=== PATIENT | female | born 1960 | race African-American/Black ===

== ENCOUNTER → 2017-02-04 | Outpatient (CLI) | payer OTHER ==
[2015-09-20 18:46] VITALS: BP 149/100
[~2017-02-04] MED LIST: IOHEXOL 240 MG/ML 50ML VIAL. ONE; IOHEXOL 300 MG/ML 75 ML VIAL. IV ONE; METR500T8 PO; PANT40TA5 PO; VALS1TAB33 PO
--- NOTE | 2017-02-04 15:52 | RAD ---
CT of the abdomen and pelvis with contrast, 02/04/2017: History: Right lower quadrant pain Multidetector CT imaging was performed following oral and IV administration of contrast. Comparison is made to a study from 09/20/2015. The liver is unremarkable. No dense gallstones are seen. The pancreas is unremarkable. The spleen is of normal size. No renal or adrenal abnormality is detected. The abdominal aorta is unremarkable. No abdominal or pelvic adenopathy is seen. Reportedly the uterus is surgically absent. There is unchanged soft tissue thickening in the region of the vaginal cuff probably due to scarring. There are multiple pelvic phleboliths. Phleboliths are also evident in the gonadal veins bilaterally. The bowel loops are not dilated. The appendix is not clearly visualized. No dilated appendix or pericecal inflammation is evident. Several small radiopacities along the base of the cecum are probably adjacent phleboliths or could represent dense material within the appendix. The small bowel loops are unremarkable. No free air or significant free fluid is evident in the abdomen or pelvis. IMPRESSION: No acute abdominal or pelvic abnormality is detected. PQRS Compliance Statement: One or more of the following individualized dose reduction techniques were utilized for this examination: 1. Automated exposure control 2. Adjustment of the mA and/or kV according to patient size 3. Use of iterative reconstruction technique
== END | disposition home or self-care (01) ==
LOC: CT 12:36
PROVIDERS: ATTEND Nurse Practitioner Adult Health
DX: I87.8 Other specified disorders of veins (principal); B37.9 Candidiasis, unspecified; N77.1 Vaginitis, vulvitis and vulvovaginitis in diseases classified elsewhere; R35.0 Frequency of micturition; I10 Essential (primary) hypertension; Z90.710 Acquired absence of both cervix and uterus
CPT/HCPCS: 74177; Q9966; Q9967

== ENCOUNTER → 2017-05-10 | Outpatient (CLI) | payer OTHER ==
[2015-09-20 18:46] VITALS: BP 149/100
[~2017-05-10] MED LIST changes: -IOHEXOL 240 MG/ML 50ML VIAL. ONE; -IOHEXOL 300 MG/ML 75 ML VIAL. IV ONE
--- NOTE | 2017-05-10 12:32 | RAD ---
CT HEAD INDICATION: four days ago hit table left frontal COMPARISON: None Available. TECHNIQUE: 5 mm contiguous axial images were obtained from the skull base to the vertex. Exposure: One or more of the following individualized dose reduction techniques were utilized for this examination: 1. Automated exposure control 2. Adjustment of the mA and/or kV according to patient size 3. Use of iterative reconstruction technique FINDINGS: No abnormal attenuation within the brain parenchyma. No evidence of acute intracranial hemorrhage. No extra-axial fluid collections. No mass effect or midline shift. Ventricular size is appropriate. Basal cisterns are patent. No fractures identified.Morrow-white differentiation is preserved.Globes and orbits are within normal limits. Paranasal sinuses and mastoid air cells are clear. IMPRESSION: No acute intracranial findings. Electronically signed by: Cain Banrey MD (05/10/2017 12:28 PM) [id number]
== END | disposition home or self-care (01) ==
LOC: CT 09:15
PROVIDERS: ATTEND Nurse Practitioner Adult Health
DX: S06.0X0A Concussion without loss of consciousness, initial encounter (principal); W22.8XXA Striking against or struck by other objects, initial encounter; Y93.89 Activity, other specified; Y92.89 Other specified places as the place of occurrence of the external cause; Y99.8 Other external cause status
CPT/HCPCS: 70450

== ENCOUNTER → 2017-09-29 | Outpatient (CLI) | payer OTHER ==
[2015-09-20 18:46] VITALS: BP 149/100
[~2017-09-29] MED LIST changes: +IOHEXOL 240 MG/ML 50ML VIAL. ONE
[2017-09-29] MEDS: IOHEXOL 300 MG/ML 75 ML VIAL. IV ONE (12:35)
--- NOTE | 2017-09-29 13:24 | RAD ---
CT Abdomen and Pelvis With Intravenous Contrast: History: Intermittent right lower quadrant pain for one year. Comparison: CT abdomen pelvis February 04, 2017. Technique: After administration of oral and intravenous contrast, 75 mL Omnipaque-300, CT of the abdomen and pelvis was performed. Exposure: One or more of the following individualized dose reduction techniques were utilized for this examination: 1. Automated exposure control 2. Adjustment of the mA and/or kV according to patient size 3. Use of iterative reconstruction technique Findings: Liver, spleen, pancreas, gallbladder, and bilateral adrenal glands are unremarkable. Bilateral kidneys enhance symmetrically. No bowel obstruction or inflammation is identified. Appendix is without evidence of inflammation. Urinary bladder is unremarkable. Uterus is absent. No free air free fluid is in the abdomen or pelvis. No abdominal or pelvic lymphadenopathy is seen. Impression: 1. No acute abnormality identified in the abdomen or pelvis. Electronically signed by: Robby Darby MD (09/29/2017 1:21 PM) [facility] [id number]
== END | disposition home or self-care (01) ==
LOC: CT 11:30
PROVIDERS: ATTEND Nurse Practitioner Adult Health
DX: R10.31 Right lower quadrant pain (principal); I10 Essential (primary) hypertension
CPT/HCPCS: 74177; Q9966; Q9967

== ENCOUNTER → 2018-03-01 | Day surgery (SDC) | payer OTHER ==
[~2018-03-01] MED LIST changes: +ALBUTEROL SULFATE 2.5 MG/3 ML NEBU. NEB PRN; +ATROPINE 0.5 MG/5 ML DISP.SYRIN. IV PRN; -IOHEXOL 240 MG/ML 50ML VIAL. ONE; +IV RINGERS SOLUTION,LACTATED 1,000 ML IV SCH; +LIDOCAINE 2% PF Vial for OR 5 ML VIAL. ONE; +LISI2.5T PO; +METR-84 PO; -METR500T8 PO; +NALOXONE 0.4 MG/ML VIAL. IV PRN; +ONDANSETRON PF 4 MG/2 ML VIAL. IV PRN; +PROPOFOL 20 ML IV ONE
[2018-03-01 13:31] VITALS: BP 137/84
== END | disposition home or self-care (01) ==
LOC: SURG 11:55
PROVIDERS: ATTEND Internal Medicine Gastroenterology
DX: K57.30 Diverticulosis of large intestine without perforation or abscess without bleeding (principal); I10 Essential (primary) hypertension; Z79.899 Other long term (current) drug therapy; Z90.710 Acquired absence of both cervix and uterus; Z98.890 Other specified postprocedural states; Z82.49 Family history of ischemic heart disease and other diseases of the circulatory system
CPT/HCPCS: 45378; J2704; J7120; J2001

== ENCOUNTER → 2019-12-12 | Outpatient (CLI) | payer OTHER ==
[2018-03-01 13:31] VITALS: BP 137/84
[~2019-12-12] MED LIST changes: -ALBUTEROL SULFATE 2.5 MG/3 ML NEBU. NEB PRN; -ATROPINE 0.5 MG/5 ML DISP.SYRIN. IV PRN; -IV RINGERS SOLUTION,LACTATED 1,000 ML IV SCH; -LIDOCAINE 2% PF Vial for OR 5 ML VIAL. ONE; +METR-34 PO; -METR-84 PO; -NALOXONE 0.4 MG/ML VIAL. IV PRN; -ONDANSETRON PF 4 MG/2 ML VIAL. IV PRN; -PANT40TA5 PO; +PANT40TA6 PO; -PROPOFOL 20 ML IV ONE
--- NOTE | 2019-12-12 10:46 | RAD ---
PQRS Compliance Statement: One or more of the following individualized dose reduction techniques were utilized for this examination: 1. Automated exposure control 2. Adjustment of the mA and/or kV according to patient size 3. Use of iterative reconstruction technique CT abdomen/pelvis without contrast 12/12/2019 12:00 AM INDICATION: Right lower quadrant abdominal pain COMPARISON: CT abdomen/pelvis 09/29/2017 TECHNIQUE: Multiple axial CT images of the abdomen and pelvis were obtained without intravenous contrast. Coronal and sagittal reformats are provided. FINDINGS: Lung bases are clear. Heart size within normal limits. Evaluation of solid abdominal viscera is limited by lack of intravenous contrast. Liver, spleen, bilateral adrenal glands, pancreas and gallbladder are normal in appearance. Abdominal aorta is normal in course and caliber. No pathologically enlarged lymph nodes are identified in abdomen and pelvis. There is no free fluid or free intraperitoneal air. Small and large bowel are normal in caliber. No bowel obstruction or inflammation. Small amount of stool is noted throughout the colon. Appendix is not dilated without adjacent inflammatory changes. Kidneys are symmetric in appearance. No hydronephrosis. No suspicious renal mass. No calculi identified within the kidneys, ureters or urinary bladder. Phleboliths are identified throughout the pelvis. Calcification is noted along the fallopian tubes. No suspicious osseous abnormality is identified. IMPRESSION: No bowel obstruction or inflammation. Appendix is normal in appearance. No evidence for obstructive uropathy. Electronically signed by: Chayo Nicholas MD (12/12/2019 10:44 AM) [id number]
== END | disposition home or self-care (01) ==
LOC: CT 10:11
PROVIDERS: ATTEND Family Medicine
DX: N83.8 Other noninflammatory disorders of ovary, fallopian tube and broad ligament (principal); I87.8 Other specified disorders of veins; R10.31 Right lower quadrant pain
CPT/HCPCS: 74176

== ENCOUNTER → 2021-05-08 | Outpatient (CLI) | payer OTHER ==
[2018-03-01 13:31] VITALS: BP 137/84
[~2021-05-08] MED LIST changes: -LISI2.5T PO; +LISI2.5T12 PO
--- NOTE | 2021-05-08 09:35 | RAD ---
Abdominal and Pelvis CT, Without Contrast: History: Reason: RLQ PAIN, WORSE AFTER BM Comparison: December 12, 2019. Procedure: Axial images are obtained of the abdomen and pelvis, without IV or oral contrast. Oral Contrast: No Findings: Evaluation of solid organs is limited without contrast. The appendix is normal. The gallbladder appears normal. The uterus and ovaries aren't well seen to be small or surgically removed. Liver: Normal. Spleen: Normal. Pancreas: Normal. Adrenal Glands: Normal. Kidneys: Normal. There is no free air or free fluid. There is no lymphadenopathy. The urinary bladder appears normal. There is no pericolonic inflammation identified. Impression: No acute findings. End impression PQRS Compliance Statement: One or more of the following individualized dose reduction techniques were utilized for this examinat ion: 1. Automated exposure control 2. Adjustment of the mA and/or kV according to patient size 3. Use of iterative reconstruction technique Electronically signed by: Ko Ansari III, MD (05/08/2021 9:32 AM) [facility]
== END ==
LOC: CT 09:11
PROVIDERS: ATTEND Nurse Practitioner Adult Health
DX: R10.31 Right lower quadrant pain (principal)
CPT/HCPCS: 74176